=== PATIENT | female | born 1955 | race Caucasian/White ===

== ENCOUNTER 2022-09-12 16:30 | Inpatient (IN) | payer OTHER, MEDICAID ==
[~2022-09-12] VITALS: Ht 154.9 cm; Wt 59.0 kg
[2022-09-12 17:33] LABS: HEMOGLOBIN. 11.1 g/dL (12.0-16.0); MEAN CORPUSCULAR HEMOGLOBIN 27.3 pg (28.0-32.0); MEAN PLATELET VOLUME 9.9 fl (7.4-10.4); PLATELET 210 x1000/uL (130-400); RED BLOOD CELL COUNT 4.05 mill/uL (4.2-5.4); RED CELL DISTRIBUTION WIDTH 16.6 % (11.6-14.6)
[2022-09-12 17:40] LABS: PROTHROMBIN TIME 11.2 sec (9.6-11.0)
[2022-09-12 17:42] LABS: CHLORIDE 104 mEq/L (98-107)
[2022-09-12 18:32] LABS: PLATELET ESTIMATE NORMAL
[2022-09-12] MEDS ORDERED: LEVOFLOXACIN 750MG PREMIX 150 ML IV NR (21:00)
[2022-09-12] MEDS ORDERED: IOHEXOL-350 100 ML BOTTLE ONE (21:56)
[2022-09-13 00:03] LABS: CLARITY URINE CLEAR (CLEAR); COLOR URINE YELLOW (YELLOW); KETONES URINE 1+ (NEGATIVE); LEUKOCYTE ESTERASE URINE NEGATIVE (NEGATIVE); NITRITE URINE POSITIVE (NEGATIVE); OCCULT BLOOD URINE NEGATIVE (NEGATIVE); PH URINE 5.5 (4.5-8.0); PROTEIN URINE NEGATIVE (NEGATIVE); SPECIFIC GRAVITY URINE 1.007 (1.005-1.030); UROBILINOGEN URINE 0.2 E.U./dL (0.2-1.0)
[2022-09-13] MEDS ORDERED: IPRATROPIUM/ALBUTEROL 0.5-3(2.5)MG/3ML NEB HHN PRN (06:00)
[2022-09-13] MEDS ORDERED: ONDANSETRON HCL 4MG/2ML INJ IV PRN (06:00)
[2022-09-13] MEDS ORDERED: GUAIFENESIN 200MG/10ML SUGAR FREE UDC PO PRN (06:00)
[2022-09-13] MEDS ORDERED: DOCUSATE SODIUM 100MG CAPSULE PO PRN (06:00)
[2022-09-13] MEDS ORDERED: LEVOFLOXACIN 500MG PREMIX 100 ML IV SCH ×2 (06:00→06:30)
[2022-09-13] MEDS ORDERED: ACETAMINOPHEN 325MG TABLET PO PRN (06:00)
[2022-09-13] MEDS ORDERED: VANCOMYCIN 1G PREMIX 200 ML IV SCH (06:00)
[2022-09-13] MEDS ORDERED: IPRATROPIUM/ALBUTEROL 0.5-3(2.5)MG/3ML NEB HHN SCH (08:00)
[2022-09-13 08:40] LABS: CHLORIDE 104 mEq/L (98-107)
[2022-09-13 09:16] LABS: BASOPHILS % 0.1 % (0.0-2.0); EOSINOPHILS % 0.4 % (0.0-5.0); HEMATOCRIT. 36.8 % (36.0-48.0); HEMOGLOBIN. 11.8 g/dL (12.0-16.0); LYMPHOCYTES % 8.3 % (20.0-50.0); MEAN CORPUSCULAR VOLUME 84.1 fL (81.0-99.0); MEAN PLATELET VOLUME 9.9 fl (7.4-10.4); MONOCYTES % 7.6 % (2.0-8.0); NEUTROPHILS % 83.6 % (40.0-76.0); PLATELET 214 x1000/uL (130-400); RED BLOOD CELL COUNT 4.38 mill/uL (4.2-5.4); RED CELL DISTRIBUTION WIDTH 16.7 % (11.6-14.6)
[2022-09-13 09:36] LABS: VITAMIN B12 SERUM 754 pg/mL (211-911)
[2022-09-13 10:15] VITALS: BP 151/44
[2022-09-13 11:01] VITALS: BP 151/44
[2022-09-13] MEDS: ENOXAPARIN 40MG/0.4ML SYR SUBCUT SCH (12:51)
[2022-09-13] MEDS ORDERED: ALBUTEROL (0.083%) 2.5MG/3ML NEB HHN PRN (14:30)
[2022-09-13] MEDS ORDERED: IPRATROPIUM BROMIDE (0.02%) 0.5MG/2.5ML NEB HHN PRN (14:30)
[2022-09-13 16:00] VITALS: BP 147/56
[2022-09-13] MEDS ORDERED: AZITHROMYCIN 500 MG in DEXT 5% WATER 250 ML IV SCH (16:00)
[2022-09-13] MEDS ORDERED: VANCOMYCIN 500MG PREMIX 100 ML IV SCH (18:00)
[2022-09-13 19:55] VITALS: BP 151/55
[2022-09-13 23:35] VITALS: BP 133/53
[2022-09-14 04:00] VITALS: BP 131/55
[2022-09-14 06:47] LABS: BASOPHILS % 0.4 % (0.0-2.0); EOSINOPHILS % 1.4 % (0.0-5.0); HEMATOCRIT. 37.3 % (36.0-48.0); HEMOGLOBIN. 12.2 g/dL (12.0-16.0); LYMPHOCYTES % 12.9 % (20.0-50.0); MEAN CORPUSCULAR HEMOGLOBIN 27.5 pg (28.0-32.0); MEAN CORPUSCULAR VOLUME 84.1 fL (81.0-99.0); MEAN PLATELET VOLUME 9.4 fl (7.4-10.4); NEUTROPHILS % 76.3 % (40.0-76.0); PLATELET 242 x1000/uL (130-400); RED BLOOD CELL COUNT 4.44 mill/uL (4.2-5.4); RED CELL DISTRIBUTION WIDTH 16.4 % (11.6-14.6)
[2022-09-14 07:22] LABS: CHLORIDE 107 mEq/L (98-107)
[2022-09-14 07:59] VITALS: BP 135/48
[2022-09-14] MEDS: ENOXAPARIN 40MG/0.4ML SYR SUBCUT SCH (08:12)
[2022-09-14] MEDS ORDERED: LEVOFLOXACIN 250MG PREMIX 50 ML IV SCH (11:00)
[2022-09-14 11:54] VITALS: BP 120/46
[2022-09-14] MEDS ORDERED: LEVO-65 MT (13:20)
[2022-09-14 16:10] VITALS: BP 143/44
== END 2022-09-14 18:15 | disposition home or self-care (01) | DRG 871 ==
LOC: ER 16:31 → MICUSO 23:40 → EDBEDREQ 23:49 → 7WST 09-13 10:51
PROVIDERS: ADMIT Internal Medicine Pulmonary Disease; ATTEND Internal Medicine Pulmonary Disease
DX: A41.9 Sepsis, unspecified organism (principal); J18.9 Pneumonia, unspecified organism; N39.0 Urinary tract infection, site not specified; K80.20 Calculus of gallbladder without cholecystitis without obstruction; M34.9 Systemic sclerosis, unspecified; Z85.3 Personal history of malignant neoplasm of breast; Z88.1 Allergy status to other antibiotic agents; Z88.8 Allergy status to other drugs, medicaments and biological substances
CPT/HCPCS: 36415; 71045; 71275; 76700; 80048; 80053; 81003; 82607; 83605; 83880; 84443; 84484; 85025; 85379; 86850; 86900; 87070; 93005; 99291; J0456; J1650; J1956; J3370; J7060; Q9967